=== PATIENT | male | born 1985 | race African-American/Black ===

== ENCOUNTER 2024-01-25 10:15 | Inpatient (IN) | payer MEDICAID, MEDICARE ==
[~2024-01-25] VITALS: Ht 170.2 cm; Wt 68.2 kg
[~2024-01-25 10:15] MED LIST: RISP-32 PO; RISP2TAB45 PO; SIMV-260 PO; SIMV-43 PO
[2024-01-25 10:56] LABS: COVID AG,FIA SOURCE NPH
[2024-01-25 11:04] LABS: BASOPHILS % (AUTO) 0.7 % (0.0-2.0); EOSINOPHILS % (AUTO) 1.3 % (1.0-6.0); HEMATOCRIT 40.9 % (41-53); HEMOGLOBIN 13.2 g/dL (13.5-17.5); LYMPHOCYTES # (AUTO) 2.1 K/uL (1.0-4.8); LYMPHOCYTES % (AUTO) 45.4 % (22.0-44.0); MEAN CORPUSCULAR HEMOGLOBIN 29.2 pg (26.0-34.0); MEAN CORPUSCULAR HGB CONC 32.3 G/dL (31.0-37.0); MEAN CORPUSCULAR VOLUME 90 fL (80-100); MONOCYTES # (AUTO) 0.5 K/uL (0.1-1.0); MONOCYTES % (AUTO) 10.4 % (2.0-9.0); NEUTROPHILS % (AUTO) 42.2 % (40.0-70.0); PLATELET COUNT (AUTO) 273 K/uL (150-450); RED BLOOD CELL COUNT(AUTO) 4.52 MIL/uL (4.50-5.90); RED CELL DISTRIBUTION WIDTH 14.1 % (11.5-14.5); WHITE BLOOD COUNT (AUTO) 4.7 K/uL (4.5-11.0)
[2024-01-25 11:12] LABS: ANION GAP 3 mmol/L (8-16); CALCIUM, TOTAL 9.5 mg/dL (8.8-10.5); CARBON DIOXIDE 36 mmol/L (22-29); CHLORIDE 103 mmol/L (98-107); CREATININE 1.01 mg/dL (0.60-1.30); GLOMERULAR FILTR. RATE CALC > 60 mL/min (>60); GLUCOSE,RANDOM 101 mg/dL (70-110); POTASSIUM 3.7 mmol/L (3.5-5.1); SODIUM SERUM 142 mmol/L (136-145); UREA NITROGEN, BLOOD 13 mg/dL (7-18)
[2024-01-25 11:20] LABS: ALCOHOL, BLOOD (SERUM) < 3 mg/dL (0-10)
[2024-01-25 11:29] LABS: APPEARANCE,URINE CLEAR (CLEAR); BILIRUBIN,URINE NEGATIVE (NEGATIVE); COLOR,URINE YELLOW (YELLOW); GLUCOSE, URINE (UA) NEGATIVE (NEGATIVE); KETONES,URINE NEGATIVE (NEGATIVE); LEUKOCYTE ESTERASE ,URINE NEGATIVE (NEGATIVE); NITRATE,URINE NEGATIVE (NEGATIVE); OCCULT BLOOD,URINE NEGATIVE (NEGATIVE); PH,URINE 5.5 (5.0-8.0); PH,URINE DRUG SCREEN 5.5 (5.0-8.0); PROTEIN,URINE TRACE mg/dL (NEGATIVE); UROBILINOGEN,URINE <=1.0 mg/dL (<=1.0)
[2024-01-25 11:37] LABS: ALCOHOL, URINE DRUG SCREEN NEGATIVE (NEGATIVE); AMPHET/METH SCREEN,URINE NEGATIVE (NEGATIVE); BARBITURATE SCREEN, URINE NEGATIVE (NEGATIVE); BENZODIAZEPINES SCREEN,URINE NEGATIVE (NEGATIVE); CANNABINOID SCREEN,URINE NEGATIVE (NEGATIVE); COCAINE SCREEN,URINE NEGATIVE (NEGATIVE); METHADONE SCREEN, URINE NEGATIVE (NEGATIVE); OPIATE SCREEN,URINE NEGATIVE (NEGATIVE); PHENCYCLIDINE SCREEN,URINE NEGATIVE (NEGATIVE)
[2024-01-25 11:40] LABS: SARS-COV2 (COVID) ANTIGEN,FIA Negative (Negative)
[2024-01-25 17:10] VITALS: RESP 18
[2024-01-25] MEDS: LORazepam 2 MG TABLET PO PRN (19:55)
[2024-01-25] MEDS: SIMVASTATIN 20 MG TABLET PO SCH (20:04)
[2024-01-25] MEDS: ETHYL ALCOHOL 62% ANTISEPTIC NASAL SANITIZER 0.6 ML AMPUL NASAL SCH (20:05)
[2024-01-25 20:51] VITALS: RESP 18
[2024-01-25] MEDS: CHLORHEXIDINE GLUCONATE 2% TOWELETTE [2'S/6'S] TP SCH (21:09)
[2024-01-26] MEDS ORDERED: HYDROCORTISONE 1% 30 GM CREAM TP PRN (06:15)
[2024-01-26 08:45] VITALS: BP 100/80; PULSE 84; RESP 20; TEMP 97.9; O2SAT 95
[2024-01-26] MEDS: RisperiDONE 2 MG TABLET PO SCH (11:16)
[2024-01-26] MEDS: IBUPROFEN 400 MG TABLET PO PRN (17:24)
[2024-01-26] MEDS ORDERED: NICOTINE 14 MG/24 HOUR PATCH TD PRN (20:30)
[2024-01-26] MEDS ORDERED: CloNIDine HCL 0.1 MG TABLET PO PRN (20:30)
[2024-01-26] MEDS ORDERED: GuaiFENesin/D-METHORPHAN [SUGAR-FREE] 200-20MG/10 ML SYRUP UDCUP PO PRN (20:30)
[2024-01-26] MEDS ORDERED: ALBUTEROL SULFATE HFA 90 MCG/PUFF 8 GM INHALER IH PRN (20:30)
[2024-01-26] MEDS ORDERED: PETROLATUM,WHITE 28 GM JELLY TP PRN (20:30)
[2024-01-26] MEDS ORDERED: LOPERAMIDE HCL 2 MG CAPSULE PO PRN (20:30)
[2024-01-26] MEDS ORDERED: ONDANSETRON HCL 4 MG TABLET PO PRN (20:30)
[2024-01-26 20:42] VITALS: RESP 18
[2024-01-26] MEDS: SIMVASTATIN 20 MG TABLET PO SCH (21:11)
[2024-01-27 05:28] VITALS: BP 126/73; PULSE 105; RESP 17; TEMP 97.6; O2SAT 96
[2024-01-27 09:29] VITALS: BP 117/75; PULSE 86; RESP 18; TEMP 97.4; O2SAT 99
[2024-01-27 16:09] VITALS: BP 127/90
[2024-01-27 20:07] VITALS: BP 125/86; RESP 18; TEMP 97.8; O2SAT 100
[2024-01-27] MEDS: ZOLPIDEM TARTRATE 10 MG TABLET PO PRN (20:16)
[2024-01-27] MEDS: IBUPROFEN 400 MG TABLET PO PRN (20:19)
[2024-01-27 20:53] VITALS: BP 127/90; PULSE 95; RESP 18; TEMP 97.7; O2SAT 100
[2024-01-28 08:33] LABS: HEMOGLOBIN A1C 5.4 % (3.8-5.6)
[2024-01-28 08:49] LABS: CHOL/HDL RATIO 2.5 (4.2-7.3); THYROID STIMULATING HORMONE 1.01 uIU/mL (0.36-3.74)
[2024-01-28 09:00] VITALS: BP 125/77; PULSE 83; RESP 18; TEMP 97.5; O2SAT 87
[2024-01-28] MEDS: MAG HYDROX/ALUMINUM HYD/SIMETH ES 30 ML SUSPENSION UDCUP PO PRN (15:55)
[2024-01-28 20:00] VITALS: RESP 20
[2024-01-29 16:17] VITALS: RESP 19
[2024-01-29 17:17] VITALS: RESP 18
[2024-01-29 20:12] VITALS: RESP 18
[2024-01-30 08:36] VITALS: RESP 18
[2024-01-30 08:52] VITALS: RESP 18
[2024-01-30 09:36] VITALS: RESP 18
[2024-01-30 22:57] VITALS: RESP 16
[2024-01-31 08:00] VITALS: RESP 16
[2024-01-31] MEDS: HALOPERIDOL 5 MG TABLET PO PRN (17:19)
[2024-02-01 09:18] VITALS: RESP 16
[2024-02-01 20:25] VITALS: RESP 16
[2024-02-02] MEDS: DOCUSATE SODIUM 100 MG CAPSULE PO PRN (13:00)
[2024-02-02 20:30] VITALS: RESP 16
[2024-02-03 09:00] VITALS: RESP 17; TEMP 97.5
[2024-02-03 16:24] VITALS: RESP 18
[2024-02-03 17:24] VITALS: RESP 17
[2024-02-03 21:32] VITALS: BP 101/61; PULSE 91; O2SAT 100
[2024-02-04 08:41] VITALS: RESP 18
[2024-02-05 08:09] VITALS: RESP 18
[2024-02-06 08:24] VITALS: RESP 18
[2024-02-07 08:34] VITALS: RESP 16
[2024-02-08 08:27] VITALS: RESP 16
[2024-02-09 09:38] VITALS: RESP 18
[2024-02-09 21:31] VITALS: RESP 18
[2024-02-10 10:03] VITALS: RESP 18
[2024-02-10 20:24] VITALS: RESP 17
[2024-02-11 08:33] VITALS: RESP 18
[2024-02-11] MEDS: RisperiDONE ER SUSPENSION 100 MG/0.28 ML PRE-FILLED SYRINGE SQ SCH (17:07)
[2024-02-11] MEDS: LORazepam 1 MG TABLET PO PRN (22:28)
[2024-02-12 08:26] VITALS: RESP 15
[2024-02-13 08:44] VITALS: BP 104/82; PULSE 110; RESP 17; TEMP 97.7; O2SAT 98
[2024-02-14 08:09] VITALS: RESP 16
[2024-02-14 20:59] VITALS: BP 116/72; PULSE 101; RESP 20; TEMP 98.6; O2SAT 100
[2024-02-15 09:18] VITALS: RESP 17
[2024-02-15 20:40] VITALS: RESP 18
[2024-02-16 08:15] VITALS: RESP 18
[2024-02-16 20:49] VITALS: RESP 18
[2024-02-17 09:38] VITALS: PULSE 82; RESP 16; TEMP 97.3; O2SAT 100
[2024-02-17 10:16] VITALS: BP 113/77; PULSE 99; RESP 17
[2024-02-17 22:01] VITALS: RESP 16
[2024-02-18 11:29] VITALS: RESP 16
[2024-02-18 20:46] VITALS: BP 130/82; PULSE 84; RESP 18; TEMP 97.3; O2SAT 98
[2024-02-19 08:49] VITALS: RESP 16
[2024-02-19 20:22] VITALS: RESP 18
[2024-02-20 08:52] VITALS: BP 105/62; PULSE 83; RESP 17; TEMP 97.8; O2SAT 100
[2024-02-20 20:11] VITALS: RESP 18
[2024-02-21 09:17] VITALS: RESP 16
[2024-02-22 08:33] VITALS: RESP 18
[2024-02-22 20:34] VITALS: RESP 18
[2024-02-23 09:05] VITALS: RESP 18
[2024-02-23 20:18] VITALS: RESP 18
[2024-02-24 08:05] VITALS: RESP 16
[2024-02-24 20:16] VITALS: RESP 16
[2024-02-25 08:33] VITALS: RESP 18
[2024-02-26 08:11] VITALS: RESP 18
[2024-02-26 23:40] VITALS: RESP 18
[2024-02-27 08:26] VITALS: RESP 18
[2024-02-28 00:46] VITALS: RESP 18
[2024-02-28 08:07] VITALS: BP 125/78; PULSE 112; RESP 16; TEMP 97.7; O2SAT 98
[2024-02-29 00:36] VITALS: RESP 17
[2024-02-29 19:46] VITALS: BP 118/73; PULSE 95; RESP 17; TEMP 98.6; O2SAT 98
[2024-02-29 20:12] VITALS: BP 118/73; PULSE 95; RESP 17; TEMP 98.6; O2SAT 98
[2024-03-01 08:21] VITALS: RESP 16
[2024-03-01 22:57] VITALS: RESP 18
[2024-03-02 08:02] VITALS: BP 89/64; PULSE 91; RESP 16; TEMP 98; O2SAT 99
[2024-03-02] MEDS: MAGNESIUM HYDROXIDE SUSPENSION 30 ML UDCUP PO PRN (17:22)
[2024-03-03 08:09] VITALS: RESP 18
[2024-03-04 08:40] VITALS: BP 115/60; PULSE 100; RESP 16; TEMP 97.6; O2SAT 99
[2024-03-05 08:22] VITALS: RESP 18
[2024-03-05 20:12] VITALS: RESP 18
[2024-03-06 08:15] VITALS: RESP 18
[2024-03-06 20:24] VITALS: RESP 18
[2024-03-07] MEDS ORDERED: RISP125S IM (08:36)
[2024-03-07 09:35] VITALS: RESP 18
[2024-03-12] MEDS ORDERED: RisperiDONE ER SUSPENSION 125 MG/0.35 ML PRE-FILLED SYRINGE SQ SCH (09:00)
== END 2024-03-07 09:15 | disposition home or self-care (01) | DRG 750 ==
LOC: EMS 10:16 → B2S 15:58 → B3A 01-28 06:14
PROVIDERS: ADMIT Psychiatry & Neurology Psychiatry; ATTEND Psychiatry & Neurology Psychiatry
PROC: GZHZZZZ Group Psychotherapy (ICD-10-PCS; principal; 2024-01-26)
PROC: GZ58ZZZ Individual Psychotherapy, Cognitive-Behavioral (ICD-10-PCS; 2024-01-29)
DX: F20.0 Paranoid schizophrenia (principal); D64.9 Anemia, unspecified; E78.5 Hyperlipidemia, unspecified; L30.9 Dermatitis, unspecified; Z20.822 Contact with and (suspected) exposure to COVID-19; F41.9 Anxiety disorder, unspecified; G47.00 Insomnia, unspecified; F94.0 Selective mutism; Z59.00 Homelessness unspecified; Z88.6 Allergy status to analgesic agent; Z79.899 Other long term (current) drug therapy
CPT/HCPCS: 80048; 80061; 80307; 81003; 83036; 84443; 85025; 99285; G0480